=== PATIENT | male | born 1985 | race Caucasian/White ===

== ENCOUNTER 2020-02-22 14:06 | Observation (INO) | payer OTHER ==
[~2020-02-22] VITALS: Ht 185.4 cm; Wt 114.7 kg
[2020-02-22] MEDS ORDERED: ZOFRAN4 MG PO (14:52)
[2020-02-22] MEDS ORDERED: LAMICTAL25 MG PO (14:52)
[2020-02-22] MEDS ORDERED: OMEPRAZOLE20 MG PO (14:53)
[2020-02-22] MEDS ORDERED: PAXIL30 MG PO (14:53)
[2020-02-22] MEDS ORDERED: TRAZODONE HCL100 MG PO (14:53)
[2020-02-22] MEDS ORDERED: TOPROL XL25 MG PO (14:54)
[2020-02-22] MEDS ORDERED: ZESTRIL10 MG PO (14:54)
[2020-02-22] MEDS ORDERED: PEPCID20 MG PO (14:54)
--- NOTE | 2020-02-22 18:15 | NUR ---
PATIENT ADMITTED TO MED SURG, PAIN IS 4/10 NO NAUSEA. X2 GUARDS IN ROOM . CLEAR LIQUID TRAY ON DISPOSABLE ORDERED.
--- NOTE | 2020-02-22 19:15 | NUR ---
SHIFT REPORT RECEIVED FROM RIGOBERTO JOHANSEN. PT RESTING IN BED, OFFICERS IN ROOM. NO NEEDS AT THIS TIME. CALL LIGHT IN REACH.
--- NOTE | 2020-02-22 20:00 | NUR ---
TOOK PT VITALS, I&OS, MARKETING FINANCE SPECIALIST COMING TO FOR CARDIAC MEDS, FRESH ICE WATER GIVEN, TOOK FINISHED DINNER TRAY OUT, NO FURTHER REQUESTS AT THIS TIME
--- NOTE | 2020-02-22 20:14 | NUR ---
SCHEDULED EVENING MEDS GIVEN PER REQUEST OF PRIMARY RN BOWEN. VSS, IV FLUIDS INFUSING PER DR ARIZA'S ORDERS. BRISK BLOOD RETURN NOTED, IV SITE WNL. PT DENIES FURTHER NEEDS, GUARDS X2 IN ROOM. BOARD UPDATED. PRN PAIN MEDICATION ALSO GIVEN FOR 4/10 ABD PAIN. CALL LIGHT IN REACH.
--- NOTE | 2020-02-22 21:56 | NUR ---
ASSESSMENT COMPLETED. PT RESTING IN BED, ABD PAIN 3/10, DENIES NEED FOR FURTHER INTERVENTION. GCS 15, A&OX4. LUNGS CLEAR. ABD FIRM, TENDER, MILDLY DISTENDED. MILD NAUSEA, ICE WATER PROVIDED. BOWEL TONES ACTIVE. SCATTERED SCARS ON ARMS NOTED. CMS INTACT. HEART TONES REGULAR. IV WNL, CDI, FLUSHED WELL. SCDs ON, TOLERATING. PT IN RESTRAINTS, OFFICERS IN ROOM. NO NEEDS AT THIS TIME. CALL LIGHT IN REACH.
--- NOTE | 2020-02-22 23:10 | NUR ---
SCHEDULED MED PROVIDED. IV WNL. NO OTHER NEEDS. CALL LIGHT IN REACH. OFFICERS IN ROOM.
--- NOTE | 2020-02-23 | NUR ---
PT RESTING IN BED, RESTRAINTS ON. IV FLUIDS INFUSING PER ORDER. OFFICERS IN ROOM.
--- NOTE | 2020-02-23 02:15 | NUR ---
PT STATES HE HAS 5/10 ABD PAIN. PRN PAIN MED PROVIDED WITH A SIP OF WATER. ASSESSMENT COMPLETED. GCS 15, A&O X4. LUNGS CLEAR. HEART TONES REGULAR. ABD FIRM, TENDER, MILDLY DISTENDED, BOWEL TONES ACTIVE.CMS INTACT. IV WNL, IV FLUIDS INFUSING PER ORDER. RESTRAINTS ON, OFFICERS IN ROOM. NO OTHER NEEDS AT THIS TIME. CALL LIGHT IN REACH.
--- NOTE | 2020-02-23 05:01 | NUR ---
SCHEDULED MED PROVIDED. PT STATES ABD PAIN IS 2/10, DENIES NEED FOR INTERVENTION. NO OTHER NEEDS AT THIS TIME. OFFICERS IN ROOM.
--- NOTE | 2020-02-23 05:03 | NUR ---
VITALS AND I&OS DONE AND CHARTED. GARBAGES EMPTIED. BEDSIDE TABLE AND CALL LIGHT IN REACH.
--- NOTE | 2020-02-23 05:53 | CONS ---
[facility] [address] [place], [place] [address] Signed DATE OF CONSULTATION: 02/22/2020 CHIEF COMPLAINT: Right upper quadrant abdominal pain. HISTORY OF PRESENT ILLNESS: Landy is a 34-year-old gentleman from our [facility] [place] [facility]. He had been having various upper abdominal symptoms a number years ago. It was discovered he had cholelithiasis about 4 years ago. Earlier today, he had significant right upper quadrant abdominal pain with nausea and vomiting. He was therefore sent to the emergency room for evaluation. He was tender in the right upper quadrant with an elevated white count and a slight elevation in his liver function test. The gallbladder ultrasound confirmed an 18 x 16 mm mobile gallstone, but the gallbladder wall is not thickened. There is no pericholecystic fluid and common bile duct is not dilated. CT scan of abdomen and pelvis was therefore performed and no other major concerns other than may be possible mild inflammation around the antrum. Consequently, I was asked to admit him as a general surgeon on-call. In the meantime, he has been given IV fluids, clear liquid diet, and Rocephin and Flagyl. He said he has been doing fine since he is here. PAST MEDICAL HISTORY: Cholelithiasis. PAST SURGICAL HISTORY: Left wrist fracture repair without metal. SOCIAL HISTORY: He quit smoking. He does not drink. He is originally from [place], [place]. He is single and has no children. He has had various jobs. Deborah Lyon is his nurse practitioner at the [facility] [place] [facility]. FAMILY HISTORY: Father had TN and CABG. Mother had lower extremity cellulitis. Sister had gastric bypass surgery for obesity. REVIEW OF SYSTEMS: He had 10 systems reviewed and no new issues found. ALLERGIES: None. MEDICATIONS: Zofran, lamotrigine, paroxetine, omeprazole, metoprolol, Pepcid, and lisinopril. Electronically Signed By: JOEL ARIZA MD 02/23/20 0553 PATIENT NAME: LANDY MALONEY CONSULTATION DATE OF : 85 REPORT #: [id number] PHYSICIAN: JOEL ARIZA MD PCP: JULIETTE LARRY MD REPORT IS CONFIDENTIAL AND NOT TO BE RELEASED WITHOUT AUTHORIZATION [facility] [address] [place], [place] [address] Signed PHYSICAL EXAMINATION: VITAL SIGNS: Blood pressure 124/73, heart rate 106, respiratory rate 22, temperature is 97.9. He is 6 feet 1 inch and 114 kg. GENERAL: Landy is a 34-year-old gentleman, who appears healthy and at his stated age. He is sitting supine semi-upright in his hospital bed, watching TV. His 2 officers are at the bedside. He does not appear systemically ill or toxic. LUNGS: Clear to auscultation bilaterally. HEART: Slightly tachycardic. ABDOMEN: Generally soft and flat with some mild tenderness in the right upper quadrant. LABORATORY DATA: His white blood count is 22.8, hemoglobin 16, neutrophils 72, bands are 14, BUN 14, creatinine 0.83, glucose 123, lactic acid 2.0, total bilirubin 0.5, AST 41, ALT 85, alkaline phosphatase 127, albumin is 5, lipase is 54. Urinalysis showed some ketones and bilirubin. Blood cultures are pending. RADIOGRAPHIC STUDIES: Gallbladder ultrasound shows the 18 x 16 mm mobile stone. No gallbladder wall thickening. No pericholecystic cystic fluid and the common bile duct is not dilated. CT scan and pelvis shows an unremarkable gallbladder with possible slight inflammation around the antrum. ASSESSMENT AND PLAN: Landy is a for 34-year-old old gentleman, who presents with what appears to be biliary colic associated with his gallstone. He is admitted, given IV fluids, and antibiotics and pain control. We are going to keep him n.p.o. after midnight. Repeat his labs in the morning. Most likely he will be an add on later in the day for his gallbladder surgery. We reviewed the location and function of the gallbladder. We reviewed laparoscopic versus open cholecystectomy. He understands expected intraop and postop course. There is risk including, but not limited to bleeding, infection, scarring, change in contour of the skin, damage to bowel, damage to main bile duct, and incisional hernias. He has expressed understanding and wishes to proceed. Joel Ariza MD ALB/MODL /[id number] Electronically Signed By: JOEL ARIZA MD 02/23/20 0553 PATIENT NAME: LANDY MALONEY CONSULTATION DATE OF : 85 REPORT #: [id number] PHYSICIAN: JOEL ARIZA MD PCP: JULIETTE LARRY MD REPORT IS CONFIDENTIAL AND NOT TO BE RELEASED WITHOUT AUTHORIZATION [address] [place], [place] [address] Signed cc: Deborah Rendon Blood, FUNERAL DIRECTOR/EMBALMER/OWNER Copies: DEBORAH LYON FUNERAL DIRECTOR/EMBALMER/OWNER ~ Electronically Signed By: JOEL ARIZA MD 02/23/20 0553 PATIENT NAME: HAIDERLANDY VENKAT CONSULTATION DATE OF : 85 REPORT #: [id number] PHYSICIAN: JOEL ARIZA MD PCP: JULIETTE LARRY MD REPORT IS CONFIDENTIAL AND NOT TO BE RELEASED WITHOUT AUTHORIZATION
--- NOTE | 2020-02-23 07:16 | NUR ---
Report recieved from Mauri Portillo RN. Patient sitting up in bed, watching TV. 2 guards at bedside. IV fluids infusing at this time. Patient remains in soft EOCI restraints. Denies needs at this time. Call light in reach, bed rails up X2.
[2020-02-23] MEDS ORDERED: LAMOTRIGINE25 MG PO (07:55)
[2020-02-23] MEDS ORDERED: LAMICTAL100 MG PO (07:57)
[2020-02-23] MEDS ORDERED: LAMICTAL200 MG PO (08:00)
[2020-02-23] MEDS ORDERED: LISINOPRIL10 MG PO (08:06)
[2020-02-23] MEDS ORDERED: CETIRIZINE HCL10 MG PO (08:06)
[2020-02-23] MEDS ORDERED: SALINE NASAL SP88 ML NAS (08:08)
--- NOTE | 2020-02-23 10:10 | NUR ---
Assessment completed. Guards at bedside. AM medications given with small sip of water. Metoprolol held due to lower BP. Patient educated on medications administered at this time. Denies questions. Ambulates to bathroom, continent of urine. EOCI soft restraints remain in place, skin intact under restrainted. Denies other needs at this time. Call light in reach.
--- NOTE | 2020-02-23 11:49 | NUR ---
Taken to OR on stretcher for surgery at this time.
--- NOTE | 2020-02-23 14:40 | NUR ---
02/23/20 1440 Sheets,Maryjane 1430 PT ARRIVED TO PACU ON 6L VIA MASK, RESP EVEN AND UNLABORED WITH ORAL AIRWAY IN PLACE. VSS.
--- NOTE | 2020-02-23 15:44 | NUR ---
PATIENT BACK FROM SURGERY. VITALS CARTED
--- NOTE | 2020-02-23 15:58 | NUR ---
Patient ambulated to br/1pa. Used urinal. 2 officers in room, call light in reach, ice on abdonmin.
--- NOTE | 2020-02-23 16:32 | NUR ---
Vital signs obtained. C/O pain and nausea, see EMAR. Dressings remains intact, clean and dry. EOCI guards at bedside, soft EOCI restraints remain in place with skin intact.
--- NOTE | 2020-02-23 17:35 | NUR ---
DRESSING REMAINS CLEAN/DRY INTACT. TOLERATING PO LIQUIDS WITHOUT DIFFICULTY. CALL LIGHT IN REACH. REMAINS IN EOCI RESTRAINTS WITH 2 GUARDS AT BEDSIDE.
--- NOTE | 2020-02-23 18:12 | NUR ---
Report called to ELENO Santiago at [facility].
--- NOTE | 2020-02-23 21:36 | PATH ---
[facility] [address] [place], [place] [address] Signed ORDERING PHYSICIAN: Lukas Sullivan MD PATIENT NAME: LANDY MALONEY GENDER: M : 1985 Prior History: No cases found. SPECIMEN(S): No Source Given MOLECULAR PATHOLOGY RESULTS: SARS-CoV-2 DETECTED ADDITIONAL NOTES.: The Strawberry Fusion SARS-CoV-2 Assay is a multiplex real-time PCR (RT-PCR) in vitro diagnostic test intended for the qualitative detection of RNA from SARS-CoV-2 from individuals who meet COVID-19 clinical and/or epidemiological criteria. In general, SARS-CoV-2 RNA can be detected during the acute phase of infection. Positive results indicate the presence of SARS-CoV-2 RNA. Clinical correlation with patient history and other diagnostic information is necessary to determine patient infection status. Positive results do not rule out bacterial infection or co-infection with other viruses. Negative results do not preclude SARS-CoV-2 infection and should not be used as the sole basis for patient management decisions. Negative results must be combined with other clinical observations, patient history, and epidemiological information. The Strawberry Fusion SARS-CoV-2 Assay is not yet approved or cleared by the [place] FDA. When there are no FDA-approved or cleared tests available, and other criteria are met, FDA can make tests available under an emergency access mechanism called an Emergency Use Authorization (EUA). The EUA for this test is supported by the Insurance Administrative Assistant of Health and Human Service's (HHS's) declaration that circumstances exist to justify the emergency use of in vitro diagnostics for the detection and/or diagnosis of the virus that causes COVID-19. This EUA will remain in effect for the duration of the COVID-19 declaration justifying emergency of IVDs, unless it is terminated or revoked by FDA, after which the test may no longer be used. The Strawberry Fusion SARS-CoV-2 Assay is for use only under EUA PATIENT NAME: LANDY MALONEY PATHOLOGY DATE OF : [birth year] REPORT #: [id number] PHYSICIAN: NILES HERNANDEZ PCP: JULIETTE LARRY MD REPORT IS CONFIDENTIAL AND NOT TO BE RELEASED WITHOUT AUTHORIZATION [facility] [address] [place] [address] [place], [place] [address] Signed in laboratories certified under the Clinical Laboratory Improvement Amendments of 1988 (CLIA) to perform high complexity tests. [facility] is certified under CLIA to perform high complexity clinical laboratory testing. PERFORMING LABORATORY.: Molecular testing was performed by [facility] [address] [place], [place] [address], [place] [address] (Rn Otolaryngology: Ronni Tate D.O.; CLIA#: [id number]) Diagnostician: System Interface Pathologist Electronically Signed 02/23/2020 Copies: ~ PATIENT NAME: LANDY MALONEY PATHOLOGY DATE OF : [birth year] REPORT #: [id number] PHYSICIAN: NILES HERNANDEZ PCP: JULIETTE LARRY MD REPORT IS CONFIDENTIAL AND NOT TO BE RELEASED WITHOUT AUTHORIZATION
--- NOTE | 2020-02-23 22:24 | NUR ---
[facility] CALLED 02/23/20 AT 2200 TO REPORT COVID TEST RESULTED DETECTED. [facility] CALLED AND SPOKE WITH NURSE BOWEN. RESULTS FAXED PER REQUEST.
--- NOTE | 2020-02-24 06:35 | OR ---
[facility] [address] [place], [place] [address] Signed DATE OF OPERATION: 02/23/2020 SURGEON: Joel Ariza MD PREOPERATIVE DIAGNOSES: Acute on chronic cholecystitis and cholelithiasis. POSTOPERATIVE DIAGNOSES: Acute on chronic cholecystitis and cholelithiasis. PROCEDURE: Laparoscopic cholecystectomy with intraoperative cholangiogram. ESTIMATED BLOOD LOSS: Minimal. FINDINGS: Landy clearly had acute on chronic inflammatory changes to the gallbladder. He did have some edema to the gallbladder wall and the gallbladder wall was from the gallbladder fossa. The intraoperative cholangiogram was unremarkable. INDICATIONS: Landy is a 34-year-old gentleman from our [facility]. He was having upper abdominal symptoms a number years ago. He found out he had cholelithiasis about 4 years ago. The day of admission, he had severe right upper quadrant abdominal pain with nausea and vomiting. He was brought to the emergency room for evaluation. White count was elevated and he was tender in the right upper quadrant. He had a very slight increase in his liver function test. Lipase was fine. The gallbladder ultrasound showed the 18 x 16 mm mobile stone without any significant gallbladder wall thickening, pericholecystic fluid or dilated common bile duct. CT scan was performed because of his tachycardia, which probably is related to his beta-aleah and the gallbladder was unremarkable with possibly very mild inflammatory changes around the antrum. I have been asked to admit him as a general surgeon on-call. I met with him last evening and found that he was not systemically ill or toxic. In fact, he is doing quite well with his clear liquids and watching TV. He was maintained on Rocephin and Flagyl and IV fluids along with pain control. I had met with him again this morning and he was doing quite well. White blood cell count came down to just below normal and his liver function test had improved as well. I had reviewed with Landy the location of function of the gallbladder. We discussed laparoscopic versus open cholecystectomy. He understands expected intraop and postop course. We did review the risks including, Electronically Signed By: JOEL ARIZA MD 02/24/20 0635 PATIENT NAME: LANDY MALONEY OPERATIVE REPORT DATE OF : [birth year] REPORT #: [id number] PHYSICIAN: JOEL ARIZA MD PCP: JULIETTE LARRY MD REPORT IS CONFIDENTIAL AND NOT TO BE RELEASED WITHOUT AUTHORIZATION [place] [id number] [place], [place] [address] Signed but not limited to bleeding, infection, scarring, change in contour of the skin, damage to bowel, damage to main bile duct, incisional hernias and other unforeseen comorbidities. He had expressed understanding and wished to proceed. DESCRIPTION OF PROCEDURE: Landy was taken into our operating room and placed in a supine position under general endotracheal tube anesthesia. He was on preoperative antibiotics along with subcutaneous Lovenox. SCDs were in place. He was prepped and draped in the usual sterile fashion. All trocars were placed in usual positions under direct visualization of camera without difficulty. Pictures were taken throughout for photodocumentation. The gallbladder was grasped and elevated in the right upper quadrant, could tell the color of the gallbladder was a bit dull indicating some mild edema in his gallbladder wall. The triangle of Calot was dissected free and 2 clips were placed across the cystic artery and it was divided. The intraoperative cholangiocatheter was inserted into the cystic duct and the intraoperative cholangiogram was performed. The intraoperative cholangiogram was unremarkable. The cystic duct stump was secured with a PDS Endoloop and 2 clips were placed across the cystic duct stump to darwin its location. After this, the gallbladder was very slowly and carefully removed from the gallbladder fossa with the help of the cautery. We found with the inflammation and edema, it was a bit from the gallbladder fossa. Once the gallbladder was free, it was placed into an EndoCatch bag. The right upper quadrant was irrigated and suctioned out until clear. We used our laparoscopic suturing device to pass 0 Vicryl suture on either side of the fascia of the subxiphoid trocar site. This was tied down to close this fascia primarily. After this, all the gas was allowed to escape and all the trocars removed along with the gallbladder. The gallbladder was opened on the back table by our circulating nurse for photodocumentation. Indeed, there is an 18 mm stone in the gallbladder. The bile itself was quite dark and thick. We then closed the fascia of the supraumbilical trocar site with interrupted [id number]-nq-leysa and simple 0-Vicryl sutures. Local anesthetic was injected into all trocar sites. Each trocar site was irrigated and suctioned out until clear. The skin and dermis of each trocar site were closed with interrupted 3-0 subcuticular Monocryl sutures. We used a fast-absorbing 5-0 plain gut suture to reapproximate the skin edges of the supraumbilical trocar site. Dry gauze and tape were then applied to all incisions. Landy was then awakened from his anesthesia, extubated in the OR, and taken to the recovery room in stable condition. Joel Ariza MD ALB/MODL Electronically Signed By: JOEL ARIZA MD 02/24/20 0635 PATIENT NAME: LANDY MALONEY OPERATIVE REPORT DATE OF : [birth year] REPORT #: [id number] PHYSICIAN: JOEL ARIZA MD PCP: JULIETTE LARRY MD REPORT IS CONFIDENTIAL AND NOT TO BE RELEASED WITHOUT AUTHORIZATION [address] [place], [place] [address] Signed /[id number] cc: MD Timmy Espinoza Blood, HEAD TRACK COACH Copies: JOEL ARIZA MD BLOODTIMMY HEAD TRACK COACH ~ Electronically Signed By: JOEL ARIZA MD 02/24/20 0635 PATIENT NAME: LANDY MALONEY OPERATIVE REPORT DATE OF : [birth year] REPORT #: [id number] PHYSICIAN: JOEL ARIZA MD PCP: JULIETTE LARRY MD REPORT IS CONFIDENTIAL AND NOT TO BE RELEASED WITHOUT AUTHORIZATION
--- NOTE | 2020-02-26 14:09 | PATH ---
[facility] [address] [facility] [place], [place] [address] Signed SPECIMEN(S): A GALLBLADDER AND STONE SPECIMEN SOURCE: A. GALLBLADDER AND STONE CLINICAL HISTORY: Cholecystitis, cholelithiasis. FINAL PATHOLOGIC DIAGNOSIS: Gallbladder and stone: - Chronic calculus cholecystitis. JVR:[id number]:[id number] MICROSCOPIC EXAMINATION: Histologic sections of all submitted blocks are examined by light microscopy. These findings, together with the gross examination, support the pathologic diagnosis. GROSS DESCRIPTION: The specimen, labeled "AH," and designated on the requisition "gallbladder and stone," is received in formalin and consists of Specimen: Previously opened gallbladder. Dimensions: 5.9 x 4.6 x 0.9 cm. Serosa: Yellow to green-south and smooth. Cystic Duct: Cannot be determined. Calculi: One green-brown, roughened calculus (1.6 x 1.2 x 1.2 cm). Mucosa: Green-south with yellow stippling. Wall thickness: 0.6 cm. Lymph node: No pericystic lymph nodes are grossly identified. Additional: None. Textile Broker sections are submitted in cassette (A1). AC (under the direct supervision of a pathologist) The Gross Description was prepared using a voice recognition system. The report was reviewed for accuracy; however, sound-alike word errors, addition and/or deletions may occur. If there is any question about this report, please contact Client Services. PERFORMING LABORATORY: The technical component was performed by [facility], [address] [place] [id number] (Chute Tender: Lynette Villafuerte MD; CLIA# [id number]). Professional interpretation was performed by PATIENT NAME: LANDY MALONEY PATHOLOGY DATE OF : [birth year] REPORT #: [id number] PHYSICIAN: [facility] PCP: JULIETTE LARRY MD REPORT IS CONFIDENTIAL AND NOT TO BE RELEASED WITHOUT AUTHORIZATION [facility] [address] [place], [place] [address] Signed [facility], [place] [address] (Chute Tender: Delvin Buchanan M.D.). Diagnostician: Delvin Buchanan MD Pathologist Electronically Signed 02/26/2020 Copies: ~ PATIENT NAME: LANDY MALONEY PATHOLOGY DATE OF : [birth year] REPORT #: [id number] PHYSICIAN: [facility] PCP: JULIETTE LARRY MD REPORT IS CONFIDENTIAL AND NOT TO BE RELEASED WITHOUT AUTHORIZATION
== END 2020-02-23 18:45 | disposition home or self-care (01) ==
LOC: ED 14:06 → MS 14:08
PROVIDERS: ADMIT Colon & Rectal Surgery; ATTEND Colon & Rectal Surgery
PROC: BF13YZZ Fluoroscopy of Gallbladder and Bile Ducts using Other Contrast (ICD-10-PCS; 2020-02-23)
PROC: 0FT44ZZ Resection of Gallbladder, Percutaneous Endoscopic Approach (ICD-10-PCS; principal; 2020-02-23 15:00)
DX: U07.1 COVID-19 (principal); K80.12 Calculus of gallbladder with acute and chronic cholecystitis without obstruction; Z79.899 Other long term (current) drug therapy; Z87.891 Personal history of nicotine dependence
CPT/HCPCS: 36415; 74177; 74300; 76705; 80053; 81001; 83605; 83690; 83735; 84100; 85025; 96366; 96372; 96376; 99285-25; C9803; G0378; J0330; J0696; J1100; J1170; J1650; J1885; J2001; J2250; J2405; J2704; J3010; J3480; J7030; J7060; J7121; Q9967; U0003

== ENCOUNTER 2020-08-28 11:39 | Emergency (ER) | payer OTHER ==
[~2020-08-28] VITALS: Ht 185.4 cm; Wt 114.3 kg
[~2020-08-28 11:39] MED LIST: CETIRIZINE HCL10 MG PO; LAMICTAL100 MG PO; LAMICTAL200 MG PO; LAMICTAL25 MG PO; LAMOTRIGINE25 MG PO; LISINOPRIL10 MG PO; OMEPRAZOLE20 MG PO; PAXIL30 MG PO; PEPCID20 MG PO; SALINE NASAL SP88 ML NAS; TOPROL XL25 MG PO; TRAZODONE HCL100 MG PO; ZESTRIL10 MG PO; ZOFRAN4 MG PO
== END 2020-08-28 13:03 | disposition home or self-care (01) ==
LOC: ED 11:39
DX: T70.29XA Other effects of high altitude, initial encounter (principal); H72.91 Unspecified perforation of tympanic membrane, right ear; I10 Essential (primary) hypertension; K21.9 Gastro-esophageal reflux disease without esophagitis; Z87.891 Personal history of nicotine dependence; Z91.030 Bee allergy status; Z79.899 Other long term (current) drug therapy
CPT/HCPCS: 99283

== ENCOUNTER 2020-10-17 11:43 | Day surgery (SDC) | payer OTHER ==
--- NOTE | 2020-10-17 14:02 | NUR ---
10/17/20 1402 Sheets,Maryjane 1358 PT ARRIVED TO PACU ON 3L VIA NC. VSS. PT WAKES EASILY AND DENIES PAIN AND NAUSEA. PT RESTING ON SIDE AND RESP EVEN AND UNLABORED.
--- NOTE | 2020-10-18 15:03 | PATH ---
[facility] [address] [place], [place] [address] Signed SPECIMEN(S): A DUODENAL BIOPSY SPECIMEN(S): B ANTRUM BIOPSY SPECIMEN(S): C DISTAL ESOPHAGEAL BIOPSY SPECIMEN(S): D MID ESOPHAGEAL BIOPSY SPECIMEN SOURCE: A. DUODENAL BIOPSY B. ANTRUM BIOPSY C. DISTAL ESOPHAGEAL BIOPSY D. MID ESOPHAGEAL BIOPSY CLINICAL HISTORY: EGD. Nausea. Postop: Normal exam. MICROSCOPIC DESCRIPTION: Histologic sections of all submitted blocks are examined by light microscopy. These findings, together with the gross examination, support the pathologic diagnosis. FINAL PATHOLOGIC DIAGNOSIS: A. Duodenum, biopsy: - Duodenal mucosa with no histopathologic abnormality. - Negative for increased intraepithelial lymphocytes or villous blunting. - Negative for dysplasia or malignancy. B. Stomach, antrum, biopsy: - Antral mucosa with mild chronic, inactive gastritis. - Negative for Helicobacter organisms on HE stain. - Negative for dysplasia or malignancy. C. Esophagus, distal, biopsy: - Squamous mucosa with mild reactive changes, suggestive of reflux esophagitis. - Negative for intestinal metaplasia, dysplasia, or malignancy. D. Esophagus, mid, biopsy: - Squamous mucosa with minimal reactive changes. - Negative for increased intraepithelial eosinophils. - Negative for dysplasia or malignancy. NAL:cml:C2NR GROSS DESCRIPTION: Four specimens are received in four containers labeled with "AH." A. The specimen, labeled "AH, 1," and designated on the requisition "duodenum biopsy," is received in formalin and consists of two fragments of pink-south PATIENT NAME: HAIDERLANDY PATHOLOGY DATE OF : 85 REPORT #: [id number] PHYSICIAN: NILES HERNANDEZ PCP: MEI BROWN NP REPORT IS CONFIDENTIAL AND NOT TO BE RELEASED WITHOUT AUTHORIZATION [facility] [address] [place], [place] [address] Signed tissue (both 0.2 cm in greatest dimension). The specimen is submitted entirely in cassette (A1). B. The specimen, labeled "AH, 2," and designated on the requisition "antrum biopsy," is received in formalin and consists of two fragments of pink-south tissue (0.3-0.5 cm in greatest dimension). The specimen is submitted entirely in cassette (B1). C. The specimen, labeled "AH, 3," and designated on the requisition "distal esophagus biopsy," is received in formalin and consists of two fragments of white-south tissue (both 0.4 cm in greatest dimension). The specimen is submitted entirely in cassette (C1). D. The specimen, labeled "AH, 4," and designated on the requisition "mid esophagus," is received in formalin and consists of one fragment of white-south tissue (0.4 cm in greatest dimension). The specimen is submitted entirely in cassette (D1). AC (under the direct supervision of a pathologist) The Gross Description was prepared using a voice recognition system. The report was reviewed for accuracy; however, sound-alike word errors, addition and/or deletions may occur. If there is any question about this report, please contact Client Services. PERFORMING LABORATORY: The technical component was performed by [facility], [address] [place] [id number] (Compliance Counsel: Lynette Villafuerte MD; CLIA# [id number]). [facility], [address] [place] [address] [place] [address] (IA# [id number]). Diagnostician: Mouna Phillips MD Pathologist Electronically Signed 10/18/2020 Copies: ~ PATIENT NAME: LANDY MALONEY VENKAT PATHOLOGY DATE OF : 85 REPORT #: [id number] PHYSICIAN: NILES HERNANDEZ PCP: MEI BROWN NP REPORT IS CONFIDENTIAL AND NOT TO BE RELEASED WITHOUT AUTHORIZATION
--- NOTE | 2020-10-19 12:37 | OR ---
[facility] [address] [place], [place] [address] Signed DATE OF OPERATION: 10/17/2020 SURGEON: Praful Fox MD PREOPERATIVE DIAGNOSES: 1. Episodic nausea and abdominal pain. 2. History of cholecystectomy in February 2020 for cholecystitis. POSTOPERATIVE DIAGNOSIS: Normal esophagus, stomach, and duodenum. PROCEDURE: Esophagogastroduodenoscopy with biopsy. ANESTHESIA: Intravenous sedation, fentanyl 100 mcg and Versed 4 mg. INDICATION: This 35-year-old white man is a prisoner at [facility] and the patient of TARIK Valencia. He did undergo laparoscopic cholecystectomy for acute cholecystitis by Dr. Pj Gonzalez in February of 2020. He still has episodic complaints of nausea and epigastric pain from time to time. This is much improved by PPI medication and also improved with sodium bicarbonate ingestion. He does not have symptoms suggestive of biliary disease that persist. He is admitted to undergo upper endoscopy to assess for peptic disease understanding the risks of bleeding, infection, and perforation. FINDINGS: Esophagus, stomach, and duodenum were normal. CLOtest was negative 20 minutes post procedure. DESCRIPTION OF PROCEDURE: The patient was brought to the endoscopy suite and placed in lateral decubitus position after undergoing lidocaine hypopharyngeal anesthesia. A bite block was placed. An Olympus video upper endoscope was passed in the hypopharynx. The vocal cords appeared normal. The scope was advanced to the stomach and into the esophagus and the esophagus appeared entirely normal. Scope was advanced to the stomach, which was insufflated with air. Rugal folds were normal. Antral motility normal. Pylorus was normal. Scope was passed through into the duodenum, which was also normal. Biopsies were taken of the duodenum to assess for celiac disease. The scope was withdrawn and biopsy was then taken of the antrum for both TIARA and pathologic testing. Retroflexed view showed a Electronically Signed By: PRAFUL FOX MD 10/19/20 1237 PATIENT NAME: LANDY MALONEY OPERATIVE REPORT DATE OF : 85 REPORT #: [id number] PHYSICIAN: PRAFUL FOX MD PCP: MEI BROWN NP REPORT IS CONFIDENTIAL AND NOT TO BE RELEASED WITHOUT AUTHORIZATION [facility] [address] [facility] [place] [place] [address] Signed normal flap valve. Scope was withdrawn to the distal esophagus. Biopsies obtained there, though it appeared normal and midesophageal biopsy was also obtained. Scope was withdrawn and removed and the patient was taken to recovery room in good condition. CONCLUDING DIAGNOSIS: No anatomic features to account for nausea or abdominal pain. It is acknowledged that he is much improved clinically with PPI medication and occasional use of sodium bicarbonate. This most likely represents a non-ulcer dyspepsia. PLAN: He will return to the ongoing care of TARIK Ovalle. I would recommend continued use of PPI medication as this is clinically beneficial to him. If things worsen or change, further evaluation could be undertaken. MD BRENDON Salinas/NATALI /[id number] cc: TARIK Valencia [facility] Copies: ~ Electronically Signed By: PRAFUL FOX MD 10/19/20 1237 PATIENT NAME: LANDY MALONEY VENKAT OPERATIVE REPORT DATE OF : 85 REPORT #: [id number] PHYSICIAN: PRAFUL FOX MD PCP: MEI BROWN NP REPORT IS CONFIDENTIAL AND NOT TO BE RELEASED WITHOUT AUTHORIZATION
== END 2020-10-17 14:20 | disposition home or self-care (01) ==
LOC: DS 11:43
PROVIDERS: ATTEND Surgery
PROC: 0DB78ZX Excision of Stomach, Pylorus, Via Natural or Artificial Opening Endoscopic, Diagnostic (ICD-10-PCS; 2020-10-17)
PROC: 0DB28ZX Excision of Middle Esophagus, Via Natural or Artificial Opening Endoscopic, Diagnostic (ICD-10-PCS; 2020-10-17)
PROC: 0DB38ZX Excision of Lower Esophagus, Via Natural or Artificial Opening Endoscopic, Diagnostic (ICD-10-PCS; 2020-10-17)
PROC: 0DB98ZX Excision of Duodenum, Via Natural or Artificial Opening Endoscopic, Diagnostic (ICD-10-PCS; principal; 2020-10-17 13:00)
DX: K29.50 Unspecified chronic gastritis without bleeding (principal); I10 Essential (primary) hypertension; J45.909 Unspecified asthma, uncomplicated; Z90.49 Acquired absence of other specified parts of digestive tract; Z20.822 Contact with and (suspected) exposure to COVID-19
CPT/HCPCS: C9803; G0500; J2250; J3010; U0003

== ENCOUNTER 2022-05-15 21:19 | Emergency (ER) | payer OTHER ==
[~2022-05-15] VITALS: Ht 182.9 cm; Wt 113.4 kg
[2022-05-16] MEDS ORDERED: AMOX TR-K CLV1 EAC1 PO (01:47)
== END 2022-05-16 02:37 | disposition home or self-care (01) ==
LOC: ED 21:19
DX: S02.31XA Fracture of orbital floor, right side, initial encounter for closed fracture (principal); Y04.8XXA Assault by other bodily force, initial encounter; I10 Essential (primary) hypertension; Z87.891 Personal history of nicotine dependence; Z91.030 Bee allergy status; Z79.899 Other long term (current) drug therapy
CPT/HCPCS: 70486; 90471; 90714; 99284-25; A9270